=== PATIENT | male | born 1960 | race Caucasian/White ===

== ENCOUNTER 2017-03-01 06:32 | Inpatient (IN) ==
[2017-03-01] MEDS ORDERED: *HR* Propofol 200 MG/20 ML VIAL IVP ONE (06:34)
[2017-03-01] MEDS ORDERED: Lidocaine -MPF 4% 5 ML AMPUL ONE (06:34)
[2017-03-01] MEDS ORDERED: *HR* FentaNYL (PF) 100 MCG/2 ML VIAL ONE ×2 (06:34→07:55)
[2017-03-01] MEDS ORDERED: *HR* Midazolam HCl 2 MG/2 ML VIAL ONE (06:34)
[2017-03-01] MEDS ORDERED: Lidocaine -MPF 2% 2 ML VIAL ONE (06:35)
[2017-03-01] MEDS ORDERED: *HR* Succinylcholine 200 MG/10 ML VIAL IVP ONE (06:40)
[2017-03-01] MEDS ORDERED: *HR* Rocuronium Bromide 50 MG/5 ML VIAL ONE (06:40)
[2017-03-01] MEDS ORDERED: Dexamethasone 4 MG/ML VIAL ONE (06:43)
[2017-03-01] MEDS ORDERED: Ondansetron 4 MG/2 ML VIAL ONE (06:43)
[2017-03-01] MEDS ORDERED: Albuterol 2.5 MG/3 ML NEBULIZER IH ONE (07:12)
[2017-03-01] MEDS ORDERED: Lidocaine -MPF 1% 2 ML VIAL ID ONE (07:12)
[2017-03-01] MEDS ORDERED: Albuterol 2.5 MG/3 ML NEBULIZER ONE (07:14)
[2017-03-01] MEDS ORDERED: Ringers Solution, Lactated 1,000 ML IVC SCH ×2 (07:15→10:32)
[2017-03-01] MEDS ORDERED: Bupivacaine/Clonidine Syringe 1 EACH SYRINGE ONE (07:25)
--- NOTE | 2017-03-01 07:55 | History & Physical Report ---
Date of Encounter: 03/01/17 Time of Encounter: 07:34 24 Hour HP Update - Instructions Instructions: If the History and Physical is less than 30 days old and was completed prior to A.M. admission and or procedure and has NOT been updated on calendar day of procedure please complete this update prior to performing procedure. - Update Patient reports changes in Medical Condition: Yes Changes in examination, assessment, or condition: No Changes in Medication: No Preop tests/diagnostics Reviewed: Yes Surgery Remains Indicated: Yes Consent for Planned Operative Procedure(s) Verified: Yes Review of Patient reveals the following changes:: May consider external fixation rather than internal fixation due to the fracture blisters, patient is slightly hypoxic and will admit patient after the surgery to be evaluated. - Pre-Operative Checklist Preoperative Checklist Indicated: Yes Prophylactic Antibiotic Ordered: Yes Home Medications Include Beta Yuyr: No Beta Yury Taken Today (Day of Surgery): No Beta Yury Taken Yesterday (Day Prior to Surgery): No Is VTE Prophylaxis Indicated?: Yes
[2017-03-01] MEDS ORDERED: CeFAZolin Syr 2,000MG/20 ML 2,000 MG/20 ML SYRINGE IVPB ONE (07:59)
--- NOTE | 2017-03-01 07:59 | Anesthesia Evaluation PreOp ---
Date of Encounter: 03/01/17 Time of Encounter: 07:57 - Past History Planned Operation: External fixator right ankle Cardiac History: Denies any Significant Hx Pulmonary History: Smoker (1-2 PPD), COPD (SEVERE - O2 SAT 81% RA, 92% ON 3LNC) TONG HOOKER History: Other (SCHIZOPHRENIA) Other Medical History: Denies Any Significant HX Anesthesia History: No Prior Anesthetic Complications, Past Anesthesia Alcohol Use: recent (2-3 drinks daily) Drug use: none Medications and Allergies Albuterol Sulfate [Albuterol Inhaler] 90 mcg IH Q4HR PRN 03/04/15 [History] Benztropine Mesylate 2 mg PO HS 03/04/15 [History] Diazepam [Valium] 10 mg PO BID 03/04/15 [History] Furosemide [Lasix] 20 mg PO DAILY 03/04/15 [History] Ipratropium/Albuterol Neb [Duoneb] 3 ml IH Q6HR 03/04/15 [History] OxyCODONE/APAP 5/325 [Percocet 5/325] 1 tab PO Q6HR PRN 03/04/15 [History] Oxygen 3 l NS HS 03/04/15 [History] Triamterene/HCTZ 37.5/25mg [Dyazide] 1 tab PO DAILY 03/04/15 [History] Fluticasone/Vilanterol [Breo Ellipta 100-25 Mcg INH] 1 puff IH DAILY 03/01/17 [ History] Tiotropium [place] [Spiriva Respimat] 1 puff IH DAILY 03/01/17 [History] buPROPion HCl [Bupropion HCl ER] 200 mg PO BID 03/01/17 [History] lamoTRIgine [Lamictal] 150 mg PO HS 03/01/17 [History] risperiDONE [RisperDAL] 3 mg PO BID 03/01/17 [History] 3 Allergy/AdvReac Type Severity Reaction Status Date / Time No Known Allergies Allergy Verified 03/01/17 06:55 - Meds/Allergy Pre-op Review Medications Reviewed: Yes Allergies Reviewed: Yes Beta Blockers on Current Med List: No Anesthesia Results - Labs Laboratory Tests 02/23/17 02/23/17 02/23/17 00:30 00:30 00:30 Hgb 14.9 Hct 43.6 Plt Count 217 PT 10.6 INR 1.0 APTT 27.2 Sodium 133 L Potassium 3.3 L Chloride 95 L Carbon Dioxide 29 BUN 15 Creatinine 0.84 Calcium 8.6 - Imaging EKG: report reviewed (02-25-2017 - SINUS RHYTHM) Anesthesia Exam Vital Signs/O2 Sat, Most Current Temp Pulse Resp BP Pulse Ox 98.0 F 104 24 133/83 92 03/01/17 07:28 03/01/17 07:28 03/01/17 07:48 03/01/17 07:48 03/01/17 07:48 Height: 5' 6" Weight: 77 kG NPO (# of Hours): >8 - HEENT Mallampati: I Teeth: Poor dentition Denture Type: Upper: Complete Oral Opening: Greater than 3 - Cardiac Rhythm: Regular - Pulmonary Breath Sounds: bilateral Rhonchi Respiratory Effort: Labored Anesthesia Assess/Plan ASA Score: 4 Modified Guillermo Scale for Level of Consciousness: Cooperative, oriented, and tranquil Anesthetic Plan: Regional (SAB) Monitoring Plan: Standard Monitors, A-Line (POSSIBLE) Recovery Plan: PACU Anes Supervising Prov Stmt: The patient was scheduled for ORIF of a right ankle fracture. The patient had significant serous drainage through the splint and splint dressing. Examination of the lower leg and ankle after removing the splint demonstrated large skin blisters and subcutaneous hematoma. The surgical plan was changed to placement of an external fixator, with deferment off definitive open reduction internal fixation for a later date, to allow for soft tissue healing. The patient has severe COPD, and is on O2 3 lpm at home at night. He reports worsening shortness of breath for the last week or so. On admission today his SpO2 was 81% on room air, increasing to 92% on 3 liters nasal cannula. The patient appears to have labored breathing, with use of accessory muscles. The patient's worsening SOB is most concerning for DVT with PE give the LE fracture. It could also be due to COPD exacerbation, or other pulmonary or cardiac issues. The patient needs to be worked up for the etiology. If the surgery is delayed today and the patient has does indeed have PE, he will be put on anticoagulation , which would delay any surgical intervention. The ankle will have to remain in a splint, with possible worsening of the soft tissue injuries, and possible fracture displacement with the need for daily dressing. A lengthy discussion about the risks, benefits, alternatives, and timing of interventions was conducted with the surgeon, Dr. Weiner, and the patient. We are electing to proceed with a high risk anesthetic, and placement of the external fixator. This will allow for fracture stabilization, soft tissue healing, and for the patient to be optimized medically. Patient understands that he is at increased risk for perioperative complications including post op vent support/ and ICU stay. Patient wishes to proceed.
--- NOTE | 2017-03-01 10:14 | Anesthesia Evaluation Post Op ---
Date of Encounter: 03/01/17 Time of Encounter: 10:12 Notes: 03/01/17 10:12 Patient is stable postoperatively and has adequately recovered from anesthesia. Patient has a stable heart rate, blood pressure and adequate hydration. Patient's mental status is acceptable. Patient's temperature is appropriate. Pain and nausea are adequately controlled. Last vital signs were reviewed. Patient has a patent airway. Respiratory function is stable, including respiratory rate and oxygen saturation. Patient will be seen by hospitalist for further management of his SOB. - Discharge PostOp Status: Transfer Patient to floor
[2017-03-01] MEDS ORDERED: Benzonatate 100 MG CAPSULE PO PRN (11:03)
--- NOTE | 2017-03-01 11:15 | Internal Medicine Consult Note ---
<BronwynfrankyJere Tavarez - Last Filed: 03/01/17 16:07> Date of Encounter: 03/01/17 Time of Encounter: 10:00 - Assessment and Plan (1) Trimalleolar fracture Current Visit: Yes Status: Acute Assessment and plan: Patient is post-surgery for external fixator of the right ankle today which was opted over open reduction internal fixation due to presence of large skin blisters and subcutaneous hematoma. Plan is to allow for soft tissue healing prior to attempting open reduction internal fixation later date. Qualifiers: Encounter type: initial encounter Fracture type: closed Laterality: right Qualified Code(s): S82.851A - Displaced trimalleolar fracture of right lower leg, initial encounter for closed fracture (2) COPD (chronic obstructive pulmonary disease) Current Visit: Yes Status: Chronic Assessment and plan: Hx of chronic COPD. Acute exacerbation of COPD versus possible PE. Supplemental O2 w/titration and SpO2 monitoring. DuoNebs Q4 scheduled. Tessalon 100 mg TID for cough. Solu-Medrol IVP 40 mg every 8. Continuous cardiac telemetry. Echocardiogram ordered. CT of the chest ordered to rule out possible PE. Will begin DVT prophylaxis tomorrow to allow for hemostasis. IVPB azithromycin and ceftriaxone for infection coverage r/t acute exacerbation of COPD. Pt. to be monitored closely for signs of cardiac and/or respiratory distress. Pt at high risk for post-surgical event based on current sx, risk factors of recent fracture and post-surgical status, hx of tobacco abuse and HTN. Observation. Qualifiers: COPD type: unspecified COPD Qualified Code(s): J44.9 - Chronic obstructive pulmonary disease, unspecified (3) Tobacco abuse Current Visit: Yes Status: Chronic Assessment and plan: Hx of chronic tobacco abuse. Nicotine patch 21 mg daily. (4) HTN (hypertension) Current Visit: Yes Status: Chronic Assessment and plan: Hx of chronic HTN. Monitor pt. and VS. Continue Dyazide. Qualifiers: Hypertension type: essential hypertension Qualified Code(s): I10 - Essential (primary) hypertension (5) Schizophrenia Current Visit: Yes Status: Chronic Assessment and plan: Hx of chronic schizophrenia. Continue Risperdal. Qualifiers: Schizophrenia type: unspecified Qualified Code(s): F20.9 - Schizophrenia, unspecified (6) Anxiety and depression Current Visit: Yes Status: Chronic Assessment and plan: Hx of chronic anxiety w/bipolar depression. Continue Valium, lamictal, and bupropion. (7) DVT prophylaxis Current Visit: Yes Status: Acute Assessment and plan: SCD on LLE for mechanical DVT prophylaxis. Will begin pharmacologic DVT prophylaxis tomorrow to allow for hemostasis post-surgery. Monitor pt. for signs of increasing respiratory and/or cardiac distress/bleeding. Internal Medicine - CN: HPI - Data of Consult Patient: new to practice Requesting Physician: Rubin Weiner - Consult Narrative Reason for consult: SOB post-surgery History of present illness: Mr. Watson is a 56 year old male with medical history of hypertension, tobacco abuse, COPD presents post-surgery for external fixator of the right ankle today which was opted over open reduction internal fixation due to presence of large skin blisters and subcutaneous hematoma. Plan is to allow for soft tissue healing prior to attempting open reduction internal fixation later date. Patient has history of chronic tobacco abuse resulting in COPD and report of worsening SOB over the past week. Concern is for possible DVT/PE due to LE fracture, so will assess cardiac and respiratory status to r/o possible DVT/PE versus COPD exacerbation. Pts. SpO2 in low 80s prior to supplemental O2 today, with increase to low 90s w/placement of nasal cannula @ 3L. Pt. reports some dizziness r/t SOB and pain in RLE but denies recent illness, fever, chills, nausea, vomiting, chest pain, palpitations, abdominal pain, changes in vision, unusual bleeding, lightheadedness, pre-syncope, or syncope. Past Med Surg Social Fam HX - Past Medical History Source: patient Medical history: COPD, hypertension, other Psychiatric history: anxiety, bipolar, depression, PTSD, schizophrenia - Past Surgical History Surgical History: other - Social History Smoking Status: Current every day smoker Packs per day: 1.5 PPD Smokeless Tobacco Status: No Alcohol use: recent Drug use: none Current living situation: Home Activity Level: Independent ambulation Recent Out of Country Travel Within the Last 8 Weeks: No Exposure or Possible Exposure to Illness During Travel: No - Family History Mother Race: Family Member Ethnicity: Non- Living Status: Still Living Hx Family Cardiac Disorders: Yes Hx Family Respiratory Disorders: Yes - Constitutional Constitutional: as per HPI, weakness (RLE weakness and pain) - EENT Eyes: as per HPI Ears: as per HPI Nose, mouth and throat: as per HPI - Breasts Breasts: as per HPI - Cardiovascular Cardiovascular ROS IM: as per HPI, dyspnea, dyspnea on exertion - Respiratory Respiratory: as per HPI, cough, dyspnea, dyspnea on exertion - Gastrointestinal Gastrointestinal: as per HPI - Genitourinary Genitourinary ROS male: as per HPI - Musculoskeletal Musculoskeletal ROS IM: other (Pain in RLE) - Integumentary Integumentary IM: as per HPI - Neurological Neurological ROS: as per HPI, dizziness - Psychiatric Psychiatric: as per HPI - Endocrine Endocrine IM: as per HPI - Hematologic/Lymphatic Hematologic/Lymphatic: as per HPI - Allergic/Immunologic Allergic/Immunologic: as per HPI Internal Medicine - CN: Meds Albuterol Sulfate [Albuterol Inhaler] 90 mcg IH Q4HR PRN 03/04/15 [History] Benztropine Mesylate 2 mg PO HS 03/04/15 [History] Diazepam [Valium] 10 mg PO BID 03/04/15 [History] Furosemide [Lasix] 20 mg PO DAILY 03/04/15 [History] Ipratropium/Albuterol Neb [Duoneb] 3 ml IH Q6HR 03/04/15 [History] OxyCODONE/APAP 5/325 [Percocet 5/325] 1 tab PO Q6HR PRN 03/04/15 [History] Oxygen 3 l NS HS 03/04/15 [History] Triamterene/HCTZ 37.5/25mg [Dyazide] 1 tab PO DAILY 03/04/15 [History] Fluticasone/Vilanterol [Breo Ellipta 100-25 Mcg INH] 1 puff IH DAILY 03/01/17 [ History] Tiotropium [place] [Spiriva Respimat] 1 puff IH DAILY 03/01/17 [History] buPROPion HCl [Bupropion HCl ER] 200 mg PO BID 03/01/17 [History] lamoTRIgine [Lamictal] 150 mg PO HS 03/01/17 [History] risperiDONE [RisperDAL] 3 mg PO BID 03/01/17 [History] 3 Allergy/AdvReac Type Severity Reaction Status Date / Time No Known Allergies Allergy Verified 03/01/17 06:55 Internal Medicine - CN: Exam - Constitutional Vitals: Temp Pulse Resp BP Pulse Ox 98.8 F 100 16 142/95 94 03/01/17 10:23 03/01/17 10:23 03/01/17 10:23 03/01/17 10:23 03/01/17 10:23 General appearance IM: Present: cooperative, A&O X 3, no acute distress, answers questions appropriately - Head Head exam: Present: atraumatic, normal inspection, normocephalic - Eye Eye exam: Present: PERRL, conjuntiva pink, sclera anicteric Pupils: Present: normal accommodation, PERRL - ENT ENT exam: Present: normal exam, normal external ear exam - Neck Neck exam general surgery: Present: normal inspection, supple, trachea midline - Respiratory Respiratory exam: Present: accessory muscle use, decreased breath sounds - Cardiovascular Cardiovascular exam IM: Present: RRR, +S1, +S2 - GI/Abdominal GI/Abdominal exam IM: Present: normal bowel sounds, soft, no peritoneal signs - Rectal Rectal exam: Present: deferred - Additional comments: exam deferred. - Extremities Exam Extremities exam IM: Present: pedal edema (RLE), warm, radial pulses palpable and symmetrical - Back Exam Back exam: Present: normal inspection - Neurological Exam Neurological exam: Present: alert, CN II-XII intact, oriented X3, strengths equal and symetr throughout - Psychiatric Psychiatric exam: Present: normal affect, normal mood - Skin Skin exam IM: Present: dry, intact Internal Medicine - CN: Reslt - Labs CBC & Chem 7: 03/01/17 11:21 03/01/17 11:21 - Impressions Impressions Ankle X-Ray 03/01/17 00:00 IMPRESSION: Intraprocedural fluoroscopic spot images as above. See separate procedure report for more information. D/ / 03/01/2017 09:44:46 Kilo Vasquez MD / glenna Interpreting Provider: Kilo Vasquez MD Fluoroscopy 03/01/17 00:00 IMPRESSION: Intraprocedural fluoroscopic spot images as above. See separate procedure report for more information. D/ / 03/01/2017 09:44:46 Kilo Vasquez MD / glenna Interpreting Provider: Kilo Vasquez MD Consult Discharge Plan - Plan Referrals: Diltz,Oliver F Jr [Primary Care Provider] - <Benjy Newton P - Last Filed: 03/01/17 17:51> Date of Encounter: 03/01/17 Internal Medicine - CN: HPI - Data of Consult Requesting Physician: Rubin Weiner - Consult Narrative History of present illness: Mr. Watson is a 56 year old male Internal Medicine - CN: Exam - Constitutional Vitals: Temp Pulse Resp BP Pulse Ox 97.9 F 84 16 131/81 94 03/01/17 10:40 03/01/17 12:30 03/01/17 12:30 03/01/17 12:30 03/01/17 12:30 Internal Medicine - CN: Reslt - Labs CBC & Chem 7: 03/01/17 11:21 03/01/17 11:21 Labs: Short CBC 03/01/17 Range/Units 11:21 WBC 11.5 H (4.3-11.1) K/mcL Hgb 13.1 D (12.9-16.9) g/dL Hct 38.6 (37.5-50.1) % Plt Count 282 (140-400) K/mcL Neutrophils # 9.3 H (1.6-8.9) K/mcL BMP 03/01/17 11:21 Sodium 136 Potassium 3.2 L Chloride 87 L Carbon Dioxide 41 H* BUN 11 Creatinine 0.82 Glucose 126 H Calcium 9.0 Liver Function 03/01/17 Range/Units 11:21 Total Bilirubin 0.8 (0.2-1.2) mg/dL AST 22 (5-34) Units/L ALT 13 (0-55) Units/L Alkaline Phosphatase 83 (38-126) Units/L Albumin 3.0 L (3.5-5.0) g/dL - ABG Interpretation ABG results: ABG ABG pH 7.46 pH Units (7.32-7.45) H 03/01/17 16:18 ABG pCO2 55 mmHg (35-45) H 03/01/17 16:18 ABG pO2 36 mmHg (85-104) L* 03/01/17 16:18 ABG O2 Saturation 70 % (95-98) L 03/01/17 16:18 - Impressions Impressions Ankle X-Ray 03/01/17 00:00 IMPRESSION: Intraprocedural fluoroscopic spot images as above. See separate procedure report for more information. D/ / 03/01/2017 09:44:46 Kilo Vasquez MD / glenna Interpreting Provider: Kilo Vasquez MD Fluoroscopy 03/01/17 00:00 IMPRESSION: Intraprocedural fluoroscopic spot images as above. See separate procedure report for more information. D/ / 03/01/2017 09:44:46 Kilo Vasquez MD / glenna Interpreting Provider: Kilo Vasquez MD - Attending Attestation I examined this patient and my medical decision-making was reviewed with the Resident Physician/SEISMIC COMPUTER. I agree with the documented findings, disposition and treatment plan as described except to the extent set forth below. Patient examined. Chart reviewed. This patient likely has a COPD exacerbation. Patient use oxygen at home which is 2 L/m. On examination Has occasional bibasilar wheeze. Assessment/plan: Likely COPD mild exacerbation. -Antibiotics/steroids/bronchodilators. -Close follow-up and likely go home in 1-2 days if clinically stable.
[2017-03-01 11:44] LABS: Basophils % 0.3 %; Eosinophils % 0.2 %; Hematocrit 38.6 % (37.5-50.1); Immature Granulocytes % 0.3 % (0-4); Lymphocytes # 1.1 K/mcL (0.6-4.6); Lymphocytes % 9.6 %; Mean Corpuscular HGB Conc 33.9 g/dL (31.6-35.5); Mean Corpuscular Hemoglobin 31.2 pg (28.0-33.3); Mean Corpuscular Volume 91.9 fL (83.0-100.0); Mean Platelet Volume 10.3 fL (9.4-12.4); Monocytes % 8.7 %; Neutrophils # 9.3 K/mcL (1.6-8.9); Platelet Count 282 K/mcL (140-400); Red Cell Distribution Width 11.6 % (11.5-14.5); Segmented Neutrophils % 80.9 %
[2017-03-01 11:52] LABS: Hemoglobin 13.1 g/dL (12.9-16.9)
[2017-03-01 11:53] LABS: Alanine Aminotransferase 13 Units/L (0-55); Albumin/Globulin Ratio 0.8 (1.1-2.2); Alkaline Phosphatase 83 Units/L (38-126); Aspartate Amino Transferase 22 Units/L (5-34); BUN/Creatinine Ratio 13 (6-26); Bilirubin,Total 0.8 mg/dL (0.2-1.2); Blood Urea Nitrogen 11 mg/dL (8-26); Chloride 87 mEq/L (98-109); Globulin 3.7 g/dL (2.4-3.5); Glucose 126 mg/dL (70-99); Osmolality,Calculated 283 (280-300); Potassium 3.2 mEq/L (3.5-4.5); Sodium 136 mEq/L (136-145); Total Protein 6.7 g/dL (6.0-8.3); eGFR For African Americans > 60 (> 60); eGFR For Non-African Americans > 60 (> 60)
[2017-03-01 11:55] LABS: Carbon Dioxide 41 mEq/L (19-29)
[2017-03-01] MEDS: Azithromycin 500 MG in D5% in Water 250 ML IVPB SCH (11:58)
[2017-03-01] MEDS: Ipratropium/Albuterol Neb 3 ML IH SCH ×2 (16:10→22:10)
[2017-03-01 16:26] LABS: ABG Base Excess 12 mEq/L (-2 to 3); ABG HCO3 39 mEq/L (21-27); ABG Oxygen Saturation 70 % (95-98); ABG PCO2 55 mmHg (35-45); ABG PH 7.46 pH Units (7.32-7.45); ABG PO2 36 mmHg (85-104); ABG TCO2 40 mEq/L (20-26)
[2017-03-01] MEDS: *HR* OxyCODONE/APAP 5/325 TABLET PO PRN (16:30)
[2017-03-01] MEDS: MethylPREDNISolone 40 MG/ML VIAL IVP SCH (16:30)
--- NOTE | 2017-03-01 17:52 | Operative Note ---
Date of procedure: 03/01/17 Pre-op diagnosis: right trimalleolar ankle fracture Post-op diagnosis: same Procedure: closed reduction external fixation of trimalleolar ankle fracture, right. Implants: pins associated with the external fixation. Complications: Fracture blisters stopped the ORIF and for that reason the closed reduction external fixation was performed. Anesthesia: spinal Surgeon: Rubin Weiner Estimated blood loss (cc): 3 Condition: stable Disposition: observation Procedure in Detail: The patient was administered IV antibiotics. The patient was transported to the operative room and placed on operating table. Following spinal and mac anesthesia the extremity was scrubbed prepped and draped in the usual aseptic fashion. A timeout was performed. The ankle was reduced in a closed fashion and c-arm was utilized to place three pins in the tibia. A long pin was placed in the calcaneus and the delta frame type external fixation was applied. The reduction was confirmed on floroscopy. The pins were dressed with xeroform. the fracture blisters were also dressed with xeroform. the whole frame was wrapped with kerlix and emmanuelle wrap. The patient tolerated the procedure and anesthesia well and was transported to the recovery room with vital signs stable and vascular status intact to both feet. The patient will be admitted to the floor per anesthesia. The patient will be evaluated on the floor by hospitalist for respiratory issues. Once the patient is cleared the patient will be discharged with home health dressing changes every other day of 72 hours. The patient will follow up in one week in clinic. The patient will remain nonweightbearing.
[2017-03-01] MEDS: cefTRIAXone 1,000 MG in Water for inj. (sterile) 10 ML IVP SCH (18:18)
[2017-03-01] MEDS ORDERED: NON-FORMULARY MEDICATION 1 EACH EACH (Oxygen [Oxygen] 3 L) NS SCH (21:00)
[2017-03-01] MEDS: lamoTRIgine 100 MG TABLET PO SCH (22:29)
[2017-03-01] MEDS: diazePAM 10 MG TABLET PO SCH (22:29)
[2017-03-01] MEDS: BuPROPion SR (12 HR) 100 MG TABLET PO SCH (22:29)
[2017-03-01] MEDS: RisperiDAL 3 MG TABLET PO SCH (22:29)
[2017-03-02] MEDS: MethylPREDNISolone 40 MG/ML VIAL IVP SCH ×3 (00:42→17:01)
[2017-03-02] MEDS: Ipratropium/Albuterol Neb 3 ML IH SCH ×4 (05:13→22:21)
[2017-03-02] MEDS: Furosemide 20 MG TABLET PO SCH (08:32)
[2017-03-02] MEDS: diazePAM 10 MG TABLET PO SCH ×2 (08:32→20:30)
[2017-03-02] MEDS: BuPROPion SR (12 HR) 100 MG TABLET PO SCH ×2 (08:32→20:30)
[2017-03-02] MEDS: RisperiDAL 3 MG TABLET PO SCH ×2 (08:32→20:29)
[2017-03-02] MEDS: (Fluticasone/Vilanterol [Breo Ellipta 100-25 Mcg Inh] IH SCH (08:33)
[2017-03-02] MEDS: (Tiotropium Bromide [Spiriva Respimat] 1 PUFF) IH SCH (08:33)
[2017-03-02 09:07] LABS: Hematocrit 39.6 % (37.5-50.1); Hemoglobin 13.3 g/dL (12.9-16.9); Immature Granulocytes % 0.3 % (0-4); Lymphocytes # 0.6 K/mcL (0.6-4.6); Lymphocytes % 6.3 %; Mean Corpuscular HGB Conc 33.6 g/dL (31.6-35.5); Mean Corpuscular Hemoglobin 31.2 pg (28.0-33.3); Monocytes # 0.5 K/mcL (0.0-1.3); Monocytes % 5.2 %; Neutrophils # 8.5 K/mcL (1.6-8.9); Platelet Count 301 K/mcL (140-400); Red Blood Count 4.26 M/mcL (4.19-5.50); Red Cell Distribution Width 11.5 % (11.5-14.5); Segmented Neutrophils % 88.2 %
[2017-03-02 09:31] LABS: BUN/Creatinine Ratio 11 (6-26); Blood Urea Nitrogen 8 mg/dL (8-26); Calcium 9.2 mg/dL (8.6-10.8); Carbon Dioxide 39 mEq/L (19-29); Chloride 87 mEq/L (98-109); Glucose 170 mg/dL (70-99); Osmolality,Calculated 284 (280-300); Potassium 3.4 mEq/L (3.5-4.5); Sodium 136 mEq/L (136-145); eGFR For African Americans > 60 (> 60); eGFR For Non-African Americans > 60 (> 60)
[2017-03-02 09:32] LABS: Magnesium 2.4 mg/dL (1.6-2.6); Phosphorous 2.7 mg/dL (2.3-4.7)
--- NOTE | 2017-03-02 11:06 | Podiatry Progress Note ---
Date of Encounter: 03/02/17 Time of Encounter: 09:30 - Assessment and Plan (1) Trimalleolar fracture Current Visit: Yes Status: Acute s/p placement of delta external fixator by Dr. Weiner. nursing to change bandage daily while patient admitted as ordered in the [facility]. upon discharge will require bandage change every other day with xeroform which was discussed by Dr. Weiner with social work on Saturday. he is to remain non-wb right LE using crutches. CTA results show multifocal pneumonia, called hospitalist who will evaluate the patient and his current symptoms, if he is admitted will transfer service to medicine, if deemed stable to be treated as an outpatient will discharge with arrangements for homecare for the dressing change. Qualifiers: Encounter type: initial encounter Fracture type: closed Laterality: right Qualified Code(s): S82.851A - Displaced trimalleolar fracture of right lower leg, initial encounter for closed fracture Subjective Interval history: s/p placement of delta frame external fixator on right LE by Dr. Weiner. admitted with SOB and hypoxia after procedure. patient denies f/c/n/v. says he is not feeling short of breath today and is feeling better overall than yesterday. CTA was done. Objective - Vital Signs Vital Signs: Vital Signs Temp Pulse Resp BP Pulse Ox 03/02/17 04:23 97.6 F 80 14 138/87 95 03/02/17 01:14 98.0 F 110 14 145/72 91 03/01/17 22:30 97.5 F L 101 14 113/77 91 03/01/17 22:12 18 93 03/01/17 16:10 16 92 03/01/17 12:30 84 16 131/81 94 03/01/17 12:10 90 127/85 97 03/01/17 11:37 90 127/80 96 Intake and Output 03/01/17 03/02/17 03/02/17 23:59 07:59 15:59 Intake Total 1140 / 1140 0 / 0 Output Total 1550 / 1550 200 / 200 300 / 300 Balance -410 / -410 -200 / -200 -300 / -300 Intake: IV Fluids 900 / 900 Lactated Ringers 1,000 ML @ 25 900 / 900 mls/hr IVC .Q24H BENJI Rx#: [id number] Oral 240 / 240 0 / 0 Output: Urine 1550 / 1550 200 / 200 300 / 300 Other: Meal Dinner Percent of Meal Consumed 75% Weight 77.065 kg Patient Weight 03/02/17 23:59 Weight 77.065 kg - Exam Exam: well developed and nourished male in no acute distress Vasc: CFT < 3 sec x 5 digits right foot. right foot warm to touch. Derm: bandage is clean, dry, and intact. Musc: no pistoning of external fixator. no calf pain with squeeze. can flex and extend right foot digits. Neuro: sensation intact to light touch. - Lab Result Diagrams: 03/02/17 08:59 03/02/17 08:59 Labs: Abnormal lab results ABG pH 7.46 pH Units (7.32-7.45) H 03/01/17 16:18 ABG pCO2 55 mmHg (35-45) H 03/01/17 16:18 ABG pO2 36 mmHg (85-104) L* 03/01/17 16:18 ABG HCO3 39 mEq/L (21-27) H 03/01/17 16:18 ABG Total CO2 40 mEq/L (20-26) H 03/01/17 16:18 ABG O2 Saturation 70 % (95-98) L 03/01/17 16:18 ABG Base Excess 12 mEq/L (-2 to 3) H 03/01/17 16:18 Potassium 3.4 mEq/L (3.5-4.5) L 03/02/17 08:59 Chloride 87 mEq/L (98-109) L 03/02/17 08:59 Carbon Dioxide 39 mEq/L (19-29) H 03/02/17 08:59 Glucose 170 mg/dL (70-99) H 03/02/17 08:59 Albumin 3.0 g/dL (3.5-5.0) L 03/01/17 11:21 Globulin 3.7 g/dL (2.4-3.5) H 03/01/17 11:21 Albumin/Globulin Ratio 0.8 (1.1-2.2) L 03/01/17 11:21 - VTE Documentation of Mechanical Device: Intermittent pneumatic compression device Consult Discharge Plan - Plan Referrals: Oliver Pryor Jr [Primary Care Provider] -
--- NOTE | 2017-03-02 11:31 | Physician Discharge Referral ---
Home Health/Hosp Referral Info Transfer to: Home Health Attending Provider: Rubin Weiner Provider in Charge Post Discharge: PCP - Diagnosis (1) Trimalleolar fracture Priority: Primary (s/p application of external fixator right lower extremity) Status: Acute - Respiratory Orders Smoking Cessation: Smoking cessation has been advised. For more information, call the [place] Tobacco Quit Line at 1-199-WMUT-NOW. - Dressing/Wound Care Site: pin sites right foot and ankle, fracture blisters around the right leg/ankle/ foot Type of Dressing/Treatments w/Frequency: xeroform, kerlix, and EDILSON banage every other day upon discharge. - Diet/Nutrition Diet/Nutrition Orders: Regular - Activity Activity: List: non-weight bearing right lower extremity - Services Needed Following services are medically necessary services: [facility] Care Orders: apply xeroform around pin sites and fracture blisters, cover with kerlix and an EDILSON wrap. - Transfer Medications Prescriptions: OxyCODONE/APAP 5/325 [Percocet 5/325 MG] 1 each PO Q6HR PRN #15 tablet PRN Reason: Pain Home Medications: Albuterol Sulfate [Albuterol Inhaler] 90 mcg IH Q4HR PRN 03/04/15 [History] Benztropine Mesylate 2 mg PO HS 03/04/15 [History] Diazepam [Valium] 10 mg PO BID 03/04/15 [History] Furosemide [Lasix] 20 mg PO DAILY 03/04/15 [History] Ipratropium/Albuterol Neb [Duoneb] 3 ml IH Q6HR 03/04/15 [History] Oxygen 3 l NS HS 03/04/15 [History] Triamterene/HCTZ 37.5/25mg [Dyazide] 1 tab PO DAILY 03/04/15 [History] Fluticasone/Vilanterol [Breo Ellipta 100-25 Mcg INH] 1 puff IH DAILY 03/01/17 [ History] Tiotropium [place] [Spiriva Respimat] 1 puff IH DAILY 03/01/17 [History] buPROPion HCl [Bupropion HCl ER] 200 mg PO BID 03/01/17 [History] lamoTRIgine [Lamictal] 150 mg PO HS 03/01/17 [History] risperiDONE [RisperDAL] 3 mg PO BID 03/01/17 [History] OxyCODONE/APAP 5/325 [Percocet 5/325 MG] 1 each PO Q6HR PRN #15 tablet 03/02/17 [Rx] Allergies/Adverse Reactions: 3 Allergy/AdvReac Type Severity Reaction Status Date / Time No Known Allergies Allergy Verified 03/01/17 06:55 Certification: Further, I certify that my clinical findings support that this patient is homebound (i.e. absences from home require considerable and taxing effort and are for medical reasons or mosque services or infrequently or short duration when for other reasons) because: Homebound Reason: Post-surgery restriction and or conditions limit ability to leave home Attestation: My signature below is to certify that this patient is under my care and that I, or nurse practitioner, or a physician's assistant professor of business working with me, has a face-to -face encounter with this patient.
[2017-03-02] MEDS: Azithromycin 500 MG in D5% in Water 250 ML IVPB SCH (12:30)
[2017-03-02] MEDS: *HR* OxyCODONE/APAP 5/325 TABLET PO PRN (12:30)
[2017-03-02] MEDS: cefTRIAXone 1,000 MG in Water for inj. (sterile) 10 ML IVP SCH (17:01)
[2017-03-02] MEDS: lamoTRIgine 100 MG TABLET PO SCH (20:29)
--- NOTE | 2017-03-03 | Internal Med Progress Note ---
Date of Encounter: 03/02/17 Time of Encounter: 15:59 - Assessment and plan (1) Multifocal pneumonia Current Visit: Yes Status: Acute Assessment and plan: Continue Rocephin/Azithromycin. Continue Solumedrol as it has exacerbated COPD. Switch to PO Prednisone in AM Follow-up broderick cultures Wean O2 as tolerated Will monitor overnight. If in AM he is not improved, we will transfer him to hospitalist service in the AM. (2) Anxiety and depression Current Visit: Yes Status: Chronic (3) COPD (chronic obstructive pulmonary disease) Current Visit: Yes Status: Chronic Qualifiers: COPD type: unspecified COPD Qualified Code(s): J44.9 - Chronic obstructive pulmonary disease, unspecified (4) HTN (hypertension) Current Visit: Yes Status: Chronic Qualifiers: Hypertension type: essential hypertension Qualified Code(s): I10 - Essential (primary) hypertension (5) Schizophrenia Current Visit: Yes Status: Chronic Qualifiers: Schizophrenia type: unspecified Qualified Code(s): F20.9 - Schizophrenia, unspecified (6) Tobacco abuse Current Visit: Yes Status: Chronic - Subjective Interval history: Patient states he's still short of breath. Denies fevers/chills, n/v. CTA results came back negative for PE but has multifocal pneumonia. - Constitutional Vitals: Temp Pulse Resp BP Pulse Ox 97.9 F 100 18 145/91 92 03/02/17 23:46 03/02/17 23:46 03/02/17 23:46 03/02/17 23:46 03/02/17 23:46 General appearance: Present: cooperative, A&O X 3, no acute distress, answers questions appropriately Exam: - Head Head exam: Present: atraumatic, normal inspection, normocephalic - Eye Eye exam: Present: PERRL, conjuntiva pink, sclera anicteric Pupils: Present: normal accommodation, PERRL - ENT ENT exam: Present: normal exam, normal external ear exam - Neck Neck exam general surgery: Present: normal inspection, supple, trachea midline - Respiratory Respiratory exam: Present: accessory muscle use, decreased breath sounds - Cardiovascular Cardiovascular exam IM: Present: RRR, +S1, +S2 - GI/Abdominal GI/Abdominal exam IM: Present: normal bowel sounds, soft, no peritoneal signs - Rectal Rectal exam: Present: deferred - Additional comments: exam deferred. - Extremities Exam Extremities exam IM: Present: pedal edema (RLE), warm, radial pulses palpable and symmetrical Internal Medicine: Result - Labs CBC & Chem 7: 03/02/17 08:59 03/02/17 08:59 Labs: Short CBC 03/02/17 Range/Units 08:59 WBC 9.6 (4.3-11.1) K/mcL Hgb 13.3 (12.9-16.9) g/dL Hct 39.6 (37.5-50.1) % Plt Count 301 (140-400) K/mcL Neutrophils # 8.5 (1.6-8.9) K/mcL BMP 03/02/17 08:59 Sodium 136 Potassium 3.4 L Chloride 87 L Carbon Dioxide 39 H BUN 8 Creatinine 0.74 Glucose 170 H Calcium 9.2 - ABG Interpretation ABG results: ABG ABG pH 7.46 pH Units (7.32-7.45) H 03/01/17 16:18 ABG pCO2 55 mmHg (35-45) H 03/01/17 16:18 ABG pO2 36 mmHg (85-104) L* 03/01/17 16:18 ABG O2 Saturation 70 % (95-98) L 03/01/17 16:18 - Impressions Impressions Echocardiogram 03/01/17 11:21 Impressions: Normal sinus rhythm. LVEF 55%. Normal LV chamber size, wall thickness and function. Trace tricuspid regurgitation. Technically sub-optimal due to poor echocardiographic windows, consider ARAM if clinically indicated Left Ventricular Wall Motion: Rest Echo Findings All visualized wall segments showed normal motion. Findings: Study Quality * Technically sub-optimal due to poor echocardiographic windows. ECG Findings * Normal sinus rhythm. Left Ventricle * LVEF 55%. * Normal LV chamber size, wall thickness and function. Right Ventricle * Normal right ventricular structure and function. Left Atrium * Normal left atrial size. Right Atrium * Normal right atrial size. Aortic Valve * Trileaflet aortic valve. * Trileaflet aortic valve with normal function. * No aortic regurgitation. * No aortic stenosis. Mitral Valve * Normal mitral valve structure and function. * No mitral regurgitation. * No mitral stenosis. Tricuspid Valve * Normal tricuspid valve structure and function. * Trace tricuspid regurgitation. Pulmonic Valve * Pulmonic valve not well visualized. Aorta * Normally sized aortic root. Pericardium * The pericardium appears normal. Chest CTA 03/02/17 10:00 IMPRESSION: 1. No CT evidence of a pulmonary embolism. 2. No acute abnormality of the thoracic aorta. 3. Multifocal pneumonia within the bilateral lower lobes. Suggest appropriate clinical treatment, and consider short-term chest CT follow-up in 6- 8 weeks to ensure resolution of these opacities. D/ / 03/02/2017 10:08:53 Angel Morales MD / [facility] Interpreting Provider: Angel Morales MD - VTE Documentation of Mechanical Device: Intermittent pneumatic compression device Consult Discharge Plan - Plan Referrals: Oliver Pryor Jr [Primary Care Provider] - Prescriptions: OxyCODONE/APAP 5/325 [Percocet 5/325 MG] 1 each PO Q6HR PRN #15 tablet PRN Reason: Pain
[2017-03-03] MEDS: Ipratropium/Albuterol Neb 3 ML IH SCH ×4 (03:24→23:26)
[2017-03-03 05:20] LABS: Basophils % 0.1 %; Eosinophils % 0.2 %; Hematocrit 36.6 % (37.5-50.1); Immature Granulocytes % 0.6 % (0-4); Lymphocytes # 1.6 K/mcL (0.6-4.6); Lymphocytes % 12.4 %; Mean Corpuscular HGB Conc 32.8 g/dL (31.6-35.5); Mean Corpuscular Hemoglobin 30.8 pg (28.0-33.3); Mean Corpuscular Volume 93.8 fL (83.0-100.0); Mean Platelet Volume 10.1 fL (9.4-12.4); Monocytes # 0.9 K/mcL (0.0-1.3); Monocytes % 7.1 %; Platelet Count 306 K/mcL (140-400); Red Cell Distribution Width 11.6 % (11.5-14.5); Segmented Neutrophils % 79.6 %
[2017-03-03 05:33] LABS: BUN/Creatinine Ratio 17 (6-26); Blood Urea Nitrogen 12 mg/dL (8-26); Calcium 9.1 mg/dL (8.6-10.8); Chloride 85 mEq/L (98-109); Glucose 118 mg/dL (70-99); Osmolality,Calculated 283 (280-300); Sodium 136 mEq/L (136-145); eGFR For African Americans > 60 (> 60); eGFR For Non-African Americans > 60 (> 60)
[2017-03-03 05:37] LABS: Carbon Dioxide 43 mEq/L (19-29)
[2017-03-03] MEDS: *HR* OxyCODONE/APAP 5/325 TABLET PO PRN ×2 (06:20→18:25)
[2017-03-03] MEDS: (Fluticasone/Vilanterol [Breo Ellipta 100-25 Mcg Inh] IH SCH (09:55)
[2017-03-03] MEDS: (Tiotropium Bromide [Spiriva Respimat] 1 PUFF) IH SCH (10:01)
[2017-03-03] MEDS: MethylPREDNISolone 40 MG/ML VIAL IVP SCH ×4 (10:15→23:18)
[2017-03-03] MEDS: BuPROPion SR (12 HR) 100 MG TABLET PO SCH ×2 (10:16→21:20)
[2017-03-03] MEDS: RisperiDAL 3 MG TABLET PO SCH ×2 (10:16→21:20)
[2017-03-03] MEDS: diazePAM 10 MG TABLET PO SCH ×2 (10:16→21:20)
[2017-03-03] MEDS: Furosemide 20 MG TABLET PO SCH (10:16)
--- NOTE | 2017-03-03 10:20 | Podiatry Progress Note ---
Date of Encounter: 03/03/17 Time of Encounter: 10:05 - Assessment and Plan (1) Trimalleolar fracture Current Visit: Yes Status: Inactive s/p placement of delta external fixator by Dr. Weiner. nursing to change bandage daily while patient admitted as ordered in [facility]. upon discharge will require bandage change every other day with xeroform which was discussed by Dr. Weiner with social work on Saturday. home health referral orders have been placed in [facility]. he is to remain non-wb right LE using crutches. CTA results show multifocal pneumonia, hospitalist to re-evaluate today, if not ready for discharge home then transfer service to medicine. Qualifiers: Encounter type: initial encounter Fracture type: closed Laterality: right Qualified Code(s): S82.851A - Displaced trimalleolar fracture of right lower leg, initial encounter for closed fracture Subjective Interval history: s/p placement of delta frame external fixator on right LE by Dr. Weiner. admits SOB, denies feeling like he had f/c/n/v. Objective - Vital Signs Vital Signs: Vital Signs Temp Pulse Resp BP Pulse Ox 03/03/17 04:03 14 98 03/03/17 03:47 97.3 F L 92 15 126/86 97 03/03/17 00:05 16 94 03/02/17 23:46 97.9 F 100 18 145/91 92 03/02/17 22:23 18 91 03/02/17 20:00 94 03/02/17 19:46 98.3 F 107 18 143/76 92 03/02/17 15:20 97.6 F 109 18 145/88 93 03/02/17 12:06 97.7 F 96 16 122/83 92 Intake and Output 03/02/17 03/03/17 03/03/17 23:59 07:59 15:59 Intake Total 250 / 250 680 / 680 Output Total 325 / 325 900 / 900 Balance -75 / -75 -220 / -220 Intake: IV Fluids Rocephin 1,000 MG In Water for inj. (sterile) 10 ML @ 300 mls/ hr IVP Q24H [facility] Rx#:[id number] Oral 240 / 240 680 / 680 Output: Urine 325 / 325 900 / 900 Other: Meal Dinner Breakfast Percent of Meal Consumed 50% 90% Weight 76.317 kg Patient Weight 03/03/17 23:59 Weight 76.317 kg - Exam Exam: well developed and nourished male in no acute distress Vasc: CFT < 3 sec x 5 digits right foot. right foot warm to touch. Derm: bandage is clean, dry, and intact. Musc: no pistoning of external fixator. no calf pain with squeeze. can flex and extend right foot digits. Neuro: sensation intact to light touch. - Lab Result Diagrams: 03/03/17 05:03 03/03/17 05:03 Labs: Abnormal lab results WBC 12.6 K/mcL (4.3-11.1) H 03/03/17 05:03 RBC 3.90 M/mcL (4.19-5.50) L 03/03/17 05:03 Hgb 12.0 g/dL (12.9-16.9) L 03/03/17 05:03 Hct 36.6 % (37.5-50.1) L 03/03/17 05:03 Neutrophils # 10.0 K/mcL (1.6-8.9) H 03/03/17 05:03 ABG pH 7.46 pH Units (7.32-7.45) H 03/01/17 16:18 ABG pCO2 55 mmHg (35-45) H 03/01/17 16:18 ABG pO2 36 mmHg (85-104) L* 03/01/17 16:18 ABG HCO3 39 mEq/L (21-27) H 03/01/17 16:18 ABG Total CO2 40 mEq/L (20-26) H 03/01/17 16:18 ABG O2 Saturation 70 % (95-98) L 03/01/17 16:18 ABG Base Excess 12 mEq/L (-2 to 3) H 03/01/17 16:18 Potassium 3.0 mEq/L (3.5-4.5) L 03/03/17 05:03 Chloride 85 mEq/L (98-109) L 03/03/17 05:03 Carbon Dioxide 43 mEq/L (19-29) H* 03/03/17 05:03 Creatinine 0.69 mg/dL (0.72-1.25) L 03/03/17 05:03 Glucose 118 mg/dL (70-99) H 03/03/17 05:03 Albumin 3.0 g/dL (3.5-5.0) L 03/01/17 11:21 Globulin 3.7 g/dL (2.4-3.5) H 03/01/17 11:21 Albumin/Globulin Ratio 0.8 (1.1-2.2) L 03/01/17 11:21 - VTE Documentation of Mechanical Device: Intermittent pneumatic compression device Consult Discharge Plan - Plan Referrals: Oliver Pryor Jr [Primary Care Provider] - Prescriptions: OxyCODONE/APAP 5/325 [Percocet 5/325 MG] 1 each PO Q6HR PRN #15 tablet PRN Reason: Pain
[2017-03-03] MEDS: Acetylcysteine 10% 2 ML INHSOL IH SCH ×3 (11:23→23:26)
[2017-03-03] MEDS: Azithromycin 500 MG in D5% in Water 250 ML IVPB SCH (13:17)
--- NOTE | 2017-03-03 17:29 | Electrocardiograph Report ---
[place] [address] Test Date: 2017-03-01 Pat Name: Ed Watson Department: 115 Room: 3A Gender: M Aquatics Specialist: : [id number] Requested By: Rubin Weiner Order Number: [id number] Reading MD: Ming Ross MD Measurements Intervals [place] Rate: 90 P: 13 [place]: 152 QRS: -15 QRSD: 84 T: 11 QT: 358 QTc: 406 Interpretive Statements SINUS RHYTHM Electronically Signed On 03-03-2017 17:28:07 EST by Ming Ross MD
[2017-03-03] MEDS: cefTRIAXone 1,000 MG in Water for inj. (sterile) 10 ML IVP SCH (18:25)
[2017-03-03] MEDS: lamoTRIgine 100 MG TABLET PO SCH (21:19)
--- NOTE | 2017-03-03 23:41 | Internal Med Progress Note ---
Date of Encounter: 03/03/17 Time of Encounter: 12:38 - Assessment and plan (1) Acute and chronic respiratory failure with hypercapnia Current Visit: Yes Status: Acute Assessment and plan: Transfer request made to be under hospitalist service as patient is not stable from a respiratory standpoint. Continue Rocephin/Azithromycin, corticosteroids Follow-up broderick cultures Wean O2 as tolerated. Is on 3L NC at home. Need monitoring overnight. May need bipap. (2) Multifocal pneumonia Current Visit: Yes Status: Acute Assessment and plan: Transfer request made to be under hospitalist service as patient is not stable from a respiratory standpoint. Continue Rocephin/Azithromycin. Continue steroid treatment Follow-up broderick cultures Wean O2 as tolerated Need monitoring overnight. May need bipap. (3) Anxiety and depression Current Visit: Yes Status: Chronic (4) COPD (chronic obstructive pulmonary disease) Current Visit: Yes Status: Chronic Qualifiers: COPD type: unspecified COPD Qualified Code(s): J44.9 - Chronic obstructive pulmonary disease, unspecified (5) HTN (hypertension) Current Visit: Yes Status: Chronic Qualifiers: Hypertension type: essential hypertension Qualified Code(s): I10 - Essential (primary) hypertension (6) Schizophrenia Current Visit: Yes Status: Chronic Qualifiers: Schizophrenia type: unspecified Qualified Code(s): F20.9 - Schizophrenia, unspecified (7) Tobacco abuse Current Visit: Yes Status: Chronic - Subjective Interval history: Less distressed than yesterday but still difficulty with breathing overall. Feels like he might not need bipap. Does complain of chest congestion. Denies fevers/chills. - Constitutional Vitals: Temp Pulse Resp BP Pulse Ox 98.0 F 105 16 117/73 92 03/03/17 21:18 03/03/17 21:18 03/03/17 21:18 03/03/17 21:18 03/03/17 21:18 General appearance: Present: cooperative, A&O X 3, no acute distress, answers questions appropriately Exam: - General Less respiratory distress since yesterday. - Eye Eye exam: Present: PERRL, conjuntiva pink, sclera anicteric Pupils: Present: normal accommodation, PERRL - ENT ENT exam: Present: normal exam, normal external ear exam - Neck Neck exam general surgery: Present: normal inspection, supple, trachea midline - Respiratory Respiratory exam: Present: accessory muscle use, decreased breath sounds - Cardiovascular Cardiovascular exam IM: Present: RRR, +S1, +S2 Internal Medicine: Result - Labs CBC & Chem 7: 03/03/17 05:03 03/03/17 05:03 Labs: Short CBC 03/03/17 Range/Units 05:03 WBC 12.6 H (4.3-11.1) K/mcL Hgb 12.0 L (12.9-16.9) g/dL Hct 36.6 L (37.5-50.1) % Plt Count 306 (140-400) K/mcL Neutrophils # 10.0 H (1.6-8.9) K/mcL BMP 03/03/17 05:03 Sodium 136 Potassium 3.0 L Chloride 85 L Carbon Dioxide 43 H* BUN 12 Creatinine 0.69 L Glucose 118 H Calcium 9.1 - ABG Interpretation ABG results: ABG ABG pH 7.46 pH Units (7.32-7.45) H 03/01/17 16:18 ABG pCO2 55 mmHg (35-45) H 03/01/17 16:18 ABG pO2 36 mmHg (85-104) L* 03/01/17 16:18 ABG O2 Saturation 70 % (95-98) L 03/01/17 16:18 - VTE Documentation of Mechanical Device: Intermittent pneumatic compression device Consult Discharge Plan - Plan Referrals: Oliver Pryor Jr [Primary Care Provider] -
[2017-03-04] MEDS: Acetylcysteine 10% 2 ML INHSOL IH SCH ×3 (04:37→16:59)
[2017-03-04] MEDS: Ipratropium/Albuterol Neb 3 ML IH SCH ×3 (04:38→16:59)
[2017-03-04 05:36] LABS: Basophils % 0.1 %; Hemoglobin 12.9 g/dL (12.9-16.9); Immature Granulocytes % 0.4 % (0-4); Lymphocytes # 0.6 K/mcL (0.6-4.6); Lymphocytes % 5.6 %; Mean Corpuscular HGB Conc 33.1 g/dL (31.6-35.5); Mean Corpuscular Hemoglobin 30.8 pg (28.0-33.3); Mean Corpuscular Volume 93.1 fL (83.0-100.0); Mean Platelet Volume 9.8 fL (9.4-12.4); Monocytes # 0.6 K/mcL (0.0-1.3); Monocytes % 5.3 %; Neutrophils # 9.5 K/mcL (1.6-8.9); Platelet Count 323 K/mcL (140-400); Red Blood Count 4.19 M/mcL (4.19-5.50); Red Cell Distribution Width 11.6 % (11.5-14.5); Segmented Neutrophils % 88.6 %
[2017-03-04 05:47] LABS: BUN/Creatinine Ratio 24 (6-26); Blood Urea Nitrogen 17 mg/dL (8-26); Calcium 9.2 mg/dL (8.6-10.8); Carbon Dioxide 39 mEq/L (19-29); Chloride 89 mEq/L (98-109); Glucose 137 mg/dL (70-99); Osmolality,Calculated 288 (280-300); Potassium 3.9 mEq/L (3.5-4.5); Sodium 137 mEq/L (136-145); eGFR For African Americans > 60 (> 60); eGFR For Non-African Americans > 60 (> 60)
[2017-03-04] MEDS ORDERED: *HR* Enoxaparin 40 MG/0.4 ML SYRINGE SQ SCH (06:00)
[2017-03-04] MEDS: Furosemide 20 MG TABLET PO SCH (08:17)
[2017-03-04] MEDS: MethylPREDNISolone 40 MG/ML VIAL IVP SCH ×2 (08:17→16:43)
[2017-03-04] MEDS: BuPROPion SR (12 HR) 100 MG TABLET PO SCH (08:18)
[2017-03-04] MEDS: *HR* OxyCODONE/APAP 5/325 TABLET PO PRN ×2 (08:18→16:42)
[2017-03-04] MEDS: RisperiDAL 3 MG TABLET PO SCH (08:18)
[2017-03-04] MEDS: (Fluticasone/Vilanterol [Breo Ellipta 100-25 Mcg Inh] IH SCH (08:18)
[2017-03-04] MEDS: (Tiotropium Bromide [Spiriva Respimat] 1 PUFF) IH SCH (08:18)
[2017-03-04] MEDS: diazePAM 10 MG TABLET PO SCH (08:18)
[2017-03-04] MEDS: Azithromycin 500 MG in D5% in Water 250 ML IVPB SCH (12:05)
[2017-03-04 15:12] VITALS: BP 122/80
[2017-03-04] MEDS: cefTRIAXone 1,000 MG in Water for inj. (sterile) 10 ML IVP SCH (16:43)
--- NOTE | 2017-03-04 17:05 | Discharge Summary ---
Date of Encounter: 03/04/17 Time of Encounter: 17:03 - Discharge Diagnosis (1) Acute and chronic respiratory failure with hypercapnia Priority: Primary Status: Acute (2) Multifocal pneumonia Priority: Secondary Status: Acute (3) Anxiety and depression Priority: Secondary Status: Chronic (4) COPD (chronic obstructive pulmonary disease) Priority: Secondary Status: Chronic Qualifiers: COPD type: unspecified COPD Qualified Code(s): J44.9 - Chronic obstructive pulmonary disease, unspecified (5) HTN (hypertension) Priority: Secondary Status: Chronic Qualifiers: Hypertension type: essential hypertension Qualified Code(s): I10 - Essential (primary) hypertension (6) Schizophrenia Priority: Secondary Status: Chronic Qualifiers: Schizophrenia type: unspecified Qualified Code(s): F20.9 - Schizophrenia, unspecified (7) Tobacco abuse Priority: Secondary Status: Chronic - Discharge Medications Prescriptions: Cefdinir [Omnicef] 300 mg PO BID #6 capsule Home Medications: Albuterol Sulfate [Albuterol Inhaler] 90 mcg IH Q4HR PRN 03/04/15 [History] Benztropine Mesylate 2 mg PO HS 03/04/15 [History] Diazepam [Valium] 10 mg PO BID 03/04/15 [History] Furosemide [Lasix] 20 mg PO DAILY 03/04/15 [History] Ipratropium/Albuterol Neb [Duoneb] 3 ml IH Q6HR 03/04/15 [History] Oxygen 3 l NS HS 03/04/15 [History] Triamterene/HCTZ 37.5/25mg [Dyazide] 1 tab PO DAILY 03/04/15 [History] Fluticasone/Vilanterol [Breo Ellipta 100-25 Mcg INH] 1 puff IH DAILY 03/01/17 [ History] Tiotropium [place] [Spiriva Respimat] 1 puff IH DAILY 03/01/17 [History] buPROPion HCl [Bupropion HCl ER] 200 mg PO BID 03/01/17 [History] lamoTRIgine [Lamictal] 150 mg PO HS 03/01/17 [History] risperiDONE [RisperDAL] 3 mg PO BID 03/01/17 [History] OxyCODONE/APAP 5/325 [Percocet 5/325 MG] 1 each PO Q6HR PRN #15 tablet 03/02/17 [Rx] Cefdinir [Omnicef] 300 mg PO BID #6 capsule 03/04/17 [Rx] Allergies/Adverse Reactions: 3 Allergy/AdvReac Type Severity Reaction Status Date / Time No Known Allergies Allergy Verified 03/01/17 06:55 Procedures/tests Complete & Pending: Procedures Performed prior 72 hours Category Date Time Status CTA chest [CT angio chest] [CT] Routine Cat Scan 03/02/17 10:00 Completed Date of admission: 03/03/17 10:10 Primary care physician: Oliver Pryor Jr Consults: 03/01/17 14:40 Consult to Library Manager [CONS] Stat Reason for SW Consult: saturday dressing changes, with adaptic /4x4s/kerlix. leave yellow xeroform on pin sites. Discharging clinician: Olivia Beebe - Patient Status Disposition: Home Health Service Condition: Fair Functional capacity at discharge: independent ambulation Overall status at discharge: patient is progressing back to baseline - Discharge Instructions Follow Up With: Oliver Pryor Jr [Primary Care Provider] - - Diet and Activity Activity: increase activity as tolerated Diet: advance to your usual diet Hospital course: Mr. Watson is a 56 year old male with past medical history of hypertension, tobacco abuse, COPD on 3 L nasal cannula at home, who presents post surgery for external fixator of the right ankle which was opted over open reduction internal fixation due to presence of large skin blisters and subcutaneous hematoma. Operation was done on 03/01/17 without any complications.. We were consulted to see patient due to respiratory distress during his stay and we briefly transferred patient to our service for further treatment. He has a history of chronic tobacco abuse resulting in COPD and reports worsening dyspnea over the past week. There was concern for possible DVT/PE due to lower extremity fracture, so the goal was to rule out DVT/PE versus COPD exacerbation. After seeing the patient was having this constant dyspnea, his baseline oxygen had to be increased to 4 L nasal cannula. He did complain of productive cough. He did not have any evertors, chills, nausea, vomiting, chest pain. He was transferred over to hospitalist service and given duo nebs every 4 scheduled, Tessalon Perles for cough, Solu-Medrol 40 mg every 8 hours. He was on telemetry monitoring. Echocardiogram was done which was noncontributory. A CTA of the chest was ordered that ruled out pulmonary embolism but did show multifocal pneumonia. He was started on azithromycin and Rocephin. He did require BiPAP at one point and eventually breathing improved and he was able to be weaned back down to 3 L of oxygen which is his baseline. Patient also felt like he himself was that his respiratory baseline. He did find it very helpful when he would use BiPAP at nighttime. He may benefit from a sleep study, as he was not in any acute distress on his last night of observation but he did use BiPAP and still felt very beneficial. He was discharged home with 3 days worth of Omnicef and 2 days worth of prednisone 40 mg tablet daily. Patient received 3 days worth of 500 mg azithromycin and so he did not need any upon discharge. He was discharged home in stable condition - Time Spent with Patient Total time spent providing and/or coordinating discharge services: - Constitutional Vitals: Temp Pulse Resp BP Pulse Ox 98.9 F 72 16 122/80 97 03/04/17 15:00 03/04/17 15:00 03/04/17 17:00 03/04/17 15:00 03/04/17 17:00 General appearance: Present: cooperative, A&O X 3, no acute distress, answers questions appropriately Exam: - Head Head exam: Present: atraumatic, normal inspection, normocephalic - Eye Eye exam: Present: PERRL, conjuntiva pink, sclera anicteric Pupils: Present: normal accommodation, PERRL - ENT ENT exam: Present: normal exam, normal external ear exam - Neck Neck exam general surgery: Present: normal inspection, supple, trachea midline - Respiratory Respiratory exam: Present: accessory muscle use, decreased breath sounds - Cardiovascular Cardiovascular exam IM: Present: RRR, +S1, +S2 - GI/Abdominal GI/Abdominal exam IM: Present: normal bowel sounds, soft, no peritoneal signs - Rectal Rectal exam: Present: deferred - Additional comments: exam deferred. - Extremities Exam Extremities exam IM: Present: pedal edema (RLE), warm, radial pulses palpable and symmetrical - VTE Documentation of Mechanical Device: Intermittent pneumatic compression device
[2017-03-05 12:39] LABS: Procalcitonin 0.13 ng/mL (<=0.10)
[2017-03-06 15:18] LABS: Mycoplasma pneumoniae IgG 0.72 U/L (<=0.09)
== END 2017-03-04 19:15 | disposition home health service (06) | DRG 313 ==
LOC: SAMDAY 06:32 → 3ANU 10:30 → SUATTDRO 03-03 10:10 → 3ANU 03-03 10:10
PROVIDERS: ADMIT Podiatrist Foot & Ankle Surgery; ATTEND Student in an Organized Health Care Education/Training Program